=== PATIENT | male | born 1965 | race Caucasian/White ===

== ENCOUNTER 2017-02-10 08:41 | Emergency (ER) | payer BC ==
[2017-02-10] MEDS ORDERED: DIPH/PERTUSS(ACELL)/TETANUS VAC/PF 0.5 ML SYR (>=10YO) IM ONE (09:18)
[2017-02-10] MEDS ORDERED: TETRACAINE HCL 0.5% OPH SOLN 2 ML OS ONE (09:18)
[2017-02-10] MEDS ORDERED: CLINDAMYCIN 600 MG/D5W RTU 50 ML IV ONE (09:24)
[2017-02-10] MEDS ORDERED: KETOROLAC TROMETHAMINE INJ/PF 30 MG/1 ML SDV IV ONE (09:24)
--- NOTE | 2017-02-10 09:28 | ER Document Report ---
HPI - HPI Patient complains to provider of: facial abscess Onset: Other - 3 days Onset/Duration: Worse Quality of pain: Achy Pain Level: 4 Context: Patient presents complaining of abscess to left side of forehead. Patient states area started to become tender 3 days ago. 2 days ago patient attempted to squeeze skin lesion with only clear fluid that drained. Patient states that 2 days ago he additionally was using a drill above his head and may have got a metal in his left eye. Patient did irrigate his eye that day. Patient states that he felt like he had removed the object and did not have a foreign body sensation. Patient states that area to his forehead has continued to swell and become tender. Patient denies any history of MRSA or diabetes. Patient denies any eye pain. Patient denies fever. Associated Symptoms: Other - Left forehead swelling. denies: Fever Exacerbated by: Denies Relieved by: Denies Similar symptoms previously: No Recently seen / treated by doctor: No - ROS ROS below otherwise negative: Yes Systems Reviewed and Negative: Yes All other systems reviewed and negative - CONSTITUTIONAL Constitutional: DENIES: Fever, Chills - EENT EENT: REPORTS: Eye problems - GASTROINTESTINAL Gastrointestinal: DENIES: Nausea - MUSCULOSKELETAL Musculoskeletal: DENIES: Back Pain, Neck Pain - DERM Skin Color: Normal Notes: abscess Past Medical History - General Information source: Patient - Social History Smoking Status: Never Smoker Frequency of alcohol use: Occasional Drug Abuse: None Occupation: maintenance Lives with: Family Family History: Reviewed & Not Pertinent - Medical History Medical History: Negative Endocrine Medical History: Denies: Hx Diabetes Mellitus Type 1, Hx Diabetes Mellitus Type 2 Renal/ Medical History: Denies: Hx Peritoneal Dialysis Surgical Hx: Negative Vertical Provider Document - CONSTITUTIONAL Agree With Documented VS: Yes Exam Limitations: No Limitations General Appearance: WD/WN, No Apparent Distress - INFECTION CONTROL TRAVEL OUTSIDE OF THE [place] IN LAST 30 DAYS: No - HEENT HEENT: PERRLA Notes: Extraocular movements intact, no eye tenderness, no proptosis or chemosis. No corneal ulcer, abrasion, or foreign body. Lid everted for exam and fluorescein applied. - NECK Neck: Normal Inspection, Supple - RESPIRATORY Respiratory: Breath Sounds Normal, No Respiratory Distress O2 Sat by Pulse Oximetry: 97 - CARDIOVASCULAR Cardiovascular: Regular Rate, Regular Rhythm, No Murmur - MUSCULOSKELETAL/EXTREMETIES Musculoskeletal/Extremeties: MAEW - NEURO Level of Consciousness: Awake, Alert, Appropriate Motor/Sensory: No Motor Deficit - DERM Integumentary: Warm, Dry, Abscess - left side forehead abscess with surrounding cellulitis Course - Re-evaluation Re-evalutation: 02/10/17 09:[address] Alanis, Dr Alanis to bedside for exam. Advises I&D, wound culture, and iv clindamycin. No concern for orbital cellulitis. 02/10/17 11:24 Dr Alanis to bedside for extension of pt's incision, cruciate incision made per Dr Alanis - Vital Signs Vital signs: Temp Pulse Resp BP Pulse Ox 98.7 F 94 18 137/68 H 97 02/10/17 08:46 02/10/17 08:46 02/10/17 08:46 02/10/17 08:46 02/10/17 08:46 - Laboratory Result Diagrams: 02/10/17 09:40 Procedures - Incision and Drainage Left Face Type: Simple Anesthetic type: 1% Lidocaine Blade size: 11 I&D procedure: Betadine prep applied Incision Method: Incision made by scalpel Amount/type of drainage: mod amount of purulent drainage Adult Head Front/Back picture: 1 - abscess, i&d performed Discharge - Discharge Clinical Impression: Facial abscess, History of foreign body in eye, Facial cellulitis Condition: Stable Disposition: HOME, SELF-CARE Instructions: Abscess ([facility]), Post Incision and Drainage, Oral Narcotic Medication ([facility]), Clindamycin ([facility]), Eyedrop Use ([facility]) Additional Instructions: Return immediately for any new or worsening symptoms Return tomorrow for a recheck. Followup with your opthamologist for a recheck, call today to make a followup appointment Prescriptions: Clindamycin HCl [Cleocin Hcl] 300 mg PO QID #28 capsule Naproxen [Naprosyn 250 Nmg Tablet] 1 tab PO BID #14 tablet Oxycodone HCl/Acetaminophen [Percocet 5-325 mg Tablet] 1 tab PO ASDIR PRN #15 tablet PRN Reason: Polymyxin B Sulfate/Tmp [Polytrim Oph Soln 10 ml] 1 drop LFT_EYE ASDIR #1 bottle Referrals: RAMO JOSHI PA [Primary Care Provider] - Follow up as needed
[2017-02-10] MEDS ORDERED: MORPHINE SULFATE 10 MG/ML INJ IV ONE (09:56)
[2017-02-10 09:59] LABS: ABSOLUTE LYMPHOCYTES (AUTO) 1.8 10^3/uL (0.5-4.7); ABSOLUTE MONOCYTES (AUTO) 0.6 10^3/uL (0.1-1.4); ABSOLUTE NEUT (AUTO) 7.9 10^3/uL (1.7-8.2); BASOPHILS % (AUTO) 0.5 % (0-2); EOSINOPHILS % (AUTO) 0.4 % (0-6); HEMATOCRIT 40.2 % (37.9-51.0); HGB HCT DIFFERENCE 1.8; MEAN CORPUSCULAR HEMOGLOBIN 30.7 pg (27.0-33.4); MEAN CORPUSCULAR HGB CONC 34.7 g/dL (32.0-36.0); MEAN CORPUSCULAR VOLUME 88 fl (80-97); MONOCYTES % (AUTO) 6.1 % (3-13); RED BLOOD COUNT 4.55 10^6/uL (4.35-5.55); WHITE BLOOD COUNT 10.4 10^3/uL (4.0-10.5)
[2017-02-10 11:47] VITALS: BP 127/78
== END 2017-02-10 11:47 | disposition home or self-care (01) ==
LOC: ER 08:41
PROC: 0H91XZZ Drainage of Face Skin, External Approach (ICD-10-PCS; principal; 2017-02-10)
DX: L02.01 Cutaneous abscess of face (principal); R22.0 Localized swelling, mass and lump, head; L03.211 Cellulitis of face
CPT/HCPCS: 99283; 90471; 96375; 96365; 36415; 87040; 87070; 87205; 85025; 87077; 87186; 90715; 10060; J1885; J2270

== ENCOUNTER 2017-02-11 19:03 | Emergency (ER) | payer BC ==
[2017-02-11 19:26] VITALS: BP 139/85
--- NOTE | 2017-02-11 20:01 | ER Document Report ---
HPI - HPI Patient complains to provider of: wound recheck Onset: Other - 4days Onset/Duration: Better Quality of pain: Achy Pain Level: 1 Context: Patient presents for a wound recheck of an abscess that was incised yesterday. Patient states that he has been able to express purulent drainage periodically from the wound. Patient states he has been compliant with his anti- inflammatory medication in addition to his pain medication. Patient states that he has noticed a decrease in the swelling, tenderness as well as redness. Patient was unable to open his left eye due to the swelling yesterday and states that he has had marked decrease in swelling to the eyelid. Patient denies any eye pain. Associated Symptoms: Other - Facial abscess Exacerbated by: Denies Relieved by: Denies Similar symptoms previously: No Recently seen / treated by doctor: Yes - ROS ROS below otherwise negative: Yes Systems Reviewed and Negative: Yes All other systems reviewed and negative - CONSTITUTIONAL Constitutional: DENIES: Fever, Chills - NEURO Neurology: DENIES: Headache - GASTROINTESTINAL Gastrointestinal: DENIES: Nausea - DERM Skin Color: Normal Notes: facial abscess Past Medical History - General Information source: Patient - Social History Smoking Status: Never Smoker Frequency of alcohol use: Occasional Drug Abuse: None Occupation: maintenance Lives with: Family Family History: Reviewed & Not Pertinent Patient has suicidal ideation: No Patient has homicidal ideation: No - Medical History Medical History: Negative Endocrine Medical History: Denies: Hx Diabetes Mellitus Type 1, Hx Diabetes Mellitus Type 2 Renal/ Medical History: Denies: Hx Peritoneal Dialysis Surgical Hx: Negative - Immunizations Hx Diphtheria, Pertussis, Tetanus Vaccination: No Vertical Provider Document - CONSTITUTIONAL Agree With Documented VS: Yes Exam Limitations: No Limitations General Appearance: WD/WN, No Apparent Distress - INFECTION CONTROL TRAVEL OUTSIDE OF THE [place] IN LAST 30 DAYS: No - HEENT HEENT: Atraumatic, PERRLA Notes: Patient with decreased left side facial swelling as compared to yesterday. Patient without any eye pain, proptosis, or chemosis - NECK Neck: Normal Inspection, Supple - RESPIRATORY Respiratory: Breath Sounds Normal, No Respiratory Distress O2 Sat by Pulse Oximetry: 97 - CARDIOVASCULAR Cardiovascular: Regular Rate, Regular Rhythm, No Murmur - MUSCULOSKELETAL/EXTREMETIES Musculoskeletal/Extremeties: MAEW - NEURO Level of Consciousness: Awake, Alert, Appropriate Motor/Sensory: No Motor Deficit - DERM Integumentary: Warm, Dry, Abscess - Abscess status post incision and drainage to left forehead, wound probed with a sterile cotton swab and a small amount of purulent drainage was able to be expressed from the wound. Course - Vital Signs Vital signs: Temp Pulse Resp BP Pulse Ox 98.5 F 62 18 139/85 H 97 02/11/17 19:24 02/11/17 19:24 02/11/17 19:24 02/11/17 19:24 02/11/17 19:24 Discharge - Discharge Clinical Impression: Facial abscess, Facial cellulitis, Encounter for wound re-check Condition: Stable Disposition: HOME, SELF-CARE Instructions: Abscess ([facility]), Post Incision and Drainage, Antibiotic Therapy ( [facility]), Cellulitis ([facility]) Additional Instructions: Return immediately for any new or worsening symptoms Followup with your primary care provider, call tomorrow to make a followup appointment Return for a recheck if you are not having any improvement of your symptoms Forms: Return to Work Referrals: HARRISON HERNÁNDEZ, [ACTIVE STAFF] - Follow up as needed
== END 2017-02-11 20:14 | disposition home or self-care (01) ==
LOC: ER 19:03
DX: L02.01 Cutaneous abscess of face (principal)
CPT/HCPCS: 99282